=== PATIENT | female | born 1940 | race African-American/Black ===

== ENCOUNTER 2022-02-19 16:05 | Inpatient (IN) | payer BC, MEDICAID ==
[~2022-02-19] VITALS: Ht 152.4 cm; Wt 95.3 kg
[~2022-02-19 16:05] MED LIST: ASPI-1497 PO; GABA-532 PO; HYDR25TA PO; METF-414 PO; RANI150C12 PO; SIMV80TA90 PO; SUCR1TAB30 PO; VALS160T2 PO
[2022-02-19 23:33] LABS: CHLORIDE 112 mEq/L (98-107); PROTHROMBIN TIME 10.4 sec (9.6-11.0)
[2022-02-19 23:38] LABS: BASOPHILS % 0.3 % (0.0-2.0); EOSINOPHILS % 1.7 % (0.0-5.0); HEMATOCRIT. 21.9 % (36.0-48.0); HEMOGLOBIN. 7.2 g/dL (12.0-16.0); LYMPHOCYTES % 36.1 % (20.0-50.0); MEAN CORPUSCULAR HEMOGLOBIN 30.9 pg (28.0-32.0); MEAN CORPUSCULAR VOLUME 93.3 fL (81.0-99.0); MEAN PLATELET VOLUME 8.8 fl (7.4-10.4); MONOCYTES % 7.3 % (2.0-8.0); NEUTROPHILS % 54.6 % (40.0-76.0); PLATELET 304 x1000/uL (130-400); RED BLOOD CELL COUNT 2.34 mill/uL (4.2-5.4); RED CELL DISTRIBUTION WIDTH 15.1 % (11.6-14.6)
[2022-02-19 23:57] LABS: CLARITY URINE CLEAR (CLEAR); COLOR URINE YELLOW (YELLOW); KETONES URINE TRACE (NEGATIVE); LEUKOCYTE ESTERASE URINE 1+ (NEGATIVE); NITRITE URINE NEGATIVE (NEGATIVE); OCCULT BLOOD URINE NEGATIVE (NEGATIVE); PROTEIN URINE NEGATIVE (NEGATIVE); SPECIFIC GRAVITY URINE 1.025 (1.005-1.030); UROBILINOGEN URINE 0.2 E.U./dL (0.2-1.0)
[2022-02-20] MEDS ORDERED: LEVOFLOXACIN 750MG PREMIX 150 ML IV NR (00:15)
[2022-02-20] MEDS ORDERED: PANTOPRAZOLE SODIUM 40 MG/VIAL IV ONE (01:30)
[2022-02-20 05:30] VITALS: BP 129/61
[2022-02-20 06:12] VITALS: BP 129/61
[2022-02-20 08:00] VITALS: BP 121/51
[2022-02-20] MEDS ORDERED: IRON SUCROSE COMPLEX 100 MG/5 ML ML IV SCH (09:00)
[2022-02-20] MEDS ORDERED: DOCUSATE SODIUM 100MG CAPSULE PO SCH (09:00)
[2022-02-20 12:00] VITALS: BP 109/58
[2022-02-20] MEDS ORDERED: LEVO500T90 MT (12:45)
[2022-02-20] MEDS ORDERED: DOCU250C14 MT (12:45)
[2022-02-20] MEDS ORDERED: HYDR30CR80 TP (12:45)
[2022-02-20] MEDS ORDERED: FERR325T6 MT (12:45)
[2022-02-20] MEDS ORDERED: CEFTRIAXONE 1 G PREMIX 50 ML IV SCH (12:45)
[2022-02-20] MEDS ORDERED: CEFTRIAXONE 1,000 MG in DEXTROSE 5% WATER 50 ML IV SCH (14:00)
[2022-02-20 14:21] VITALS: BP 112/55
[2022-02-20 16:00] VITALS: BP 121/55
[2022-02-20] MEDS ORDERED: EPOETIN ALFA 4000UNITS/ML VIAL SUBCUT SCH (21:00)
== END 2022-02-20 17:57 | disposition home or self-care (01) | DRG 394 ==
LOC: ER 16:05 → 7EST 02-20 04:04 → ENRESERV 02-20 04:26
PROVIDERS: ADMIT Internal Medicine Pulmonary Disease; ATTEND Internal Medicine Pulmonary Disease
DX: K64.9 Unspecified hemorrhoids (principal); K92.2 Gastrointestinal hemorrhage, unspecified; Z68.41 Body mass index [BMI] 40.0-44.9, adult; N39.0 Urinary tract infection, site not specified; D64.9 Anemia, unspecified; E11.9 Type 2 diabetes mellitus without complications; E78.00 Pure hypercholesterolemia, unspecified; I10 Essential (primary) hypertension; E78.5 Hyperlipidemia, unspecified; E87.8 Other disorders of electrolyte and fluid balance, not elsewhere classified; E66.9 Obesity, unspecified; Z88.0 Allergy status to penicillin; Z79.899 Other long term (current) drug therapy
CPT/HCPCS: 36415; 80053; 81003; 83880; 84484; 85025; 86850; 86900; 99285; C9113; J0696; J0885; J1956; J7060

== ENCOUNTER 2022-02-25 16:28 | Inpatient (IN) | payer BC, MEDICAID ==
[~2022-02-25] VITALS: Ht 160 cm; Wt 93.4 kg
[2022-02-25] MEDS: SUCRALFATE 1G TABLET PO SCH ×3 (09:00→17:00)
[~2022-02-25 16:28] MED LIST changes: +DOCU250C14 MT; +FERR325T6 MT; +HYDR30CR80 TP; +LEVO500T90 MT
[2022-02-25 17:48] LABS: BASOPHILS % 0.3 % (0.0-2.0); EOSINOPHILS % 1.7 % (0.0-5.0); HEMATOCRIT. 21.1 % (36.0-48.0); LYMPHOCYTES % 23.6 % (20.0-50.0); MEAN CORPUSCULAR HEMOGLOBIN 31.7 pg (28.0-32.0); MEAN CORPUSCULAR VOLUME 95.1 fL (81.0-99.0); MEAN PLATELET VOLUME 7.5 fl (7.4-10.4); MONOCYTES % 7.7 % (2.0-8.0); NEUTROPHILS % 66.7 % (40.0-76.0); PLATELET 392 x1000/uL (130-400); RED BLOOD CELL COUNT 2.22 mill/uL (4.2-5.4); RED CELL DISTRIBUTION WIDTH 16.1 % (11.6-14.6)
[2022-02-25 17:59] LABS: CHLORIDE 105 mEq/L (98-107)
[2022-02-25] MEDS ORDERED: CLONIDINE 0.1MG TABLET PO PRN (23:30)
[2022-02-25] MEDS ORDERED: DOCUSATE SODIUM 100MG CAPSULE PO PRN (23:30)
[2022-02-25] MEDS ORDERED: ONDANSETRON HCL 4MG/2ML INJ IV PRN (23:30)
[2022-02-25] MEDS ORDERED: ZOLPIDEM TARTRATE 5MG TABLET PO PRN (23:30)
[2022-02-26 00:11] VITALS: BP 123/61
[2022-02-26] MEDS ORDERED: EPOETIN ALFA-EPBX 4,000 UNIT/ML VIAL SUBCUT NR (01:00)
[2022-02-26] MEDS ORDERED: DEXTROSE 50% WATER 50ML SYRINGE IV PRN (03:15)
[2022-02-26 04:00] VITALS: BP 162/71
[2022-02-26] MEDS ORDERED: PNEUMOCOCCAL 23-VAL P-SAC VAC 0.5 ML IM ONE (05:00)
[2022-02-26] MEDS: INSULIN LISPRO 100 UNITS/ML SUBCUT SCH ×4 (07:50→21:00)
[2022-02-26] MEDS ORDERED: PANTOPRAZOLE 40MG DR TABLET PO SCH (07:50)
[2022-02-26 08:00] VITALS: BP 113/63
[2022-02-26 08:09] LABS: CHLORIDE 109 mEq/L (98-107)
[2022-02-26] MEDS: BLOOD SUGAR DIAGNOSTIC STRIP TEST SCH ×4 (08:18→21:20)
[2022-02-26] MEDS: DOCUSATE SODIUM 250MG CAPSULE PO SCH ×2 (08:58→16:59)
[2022-02-26] MEDS: LOSARTAN POTASSIUM 100 MG TABLET PO SCH (08:59)
[2022-02-26] MEDS: GABAPENTIN 300MG CAPSULE PO SCH (08:59)
[2022-02-26] MEDS: SUCRALFATE 1G TABLET PO SCH ×3 (09:00→17:00)
[2022-02-26] MEDS ORDERED: FERROUS SULFATE 325MG TABLET PO SCH (09:00)
[2022-02-26 12:00] VITALS: BP 111/53
[2022-02-26 12:10] LABS: BASOPHILS % 0.3 % (0.0-2.0); EOSINOPHILS % 2.2 % (0.0-5.0); LYMPHOCYTES % 22.2 % (20.0-50.0); MEAN CORPUSCULAR HEMOGLOBIN 31.5 pg (28.0-32.0); MEAN CORPUSCULAR VOLUME 96.4 fL (81.0-99.0); MEAN PLATELET VOLUME 7.9 fl (7.4-10.4); MONOCYTES % 6.9 % (2.0-8.0); NEUTROPHILS % 68.4 % (40.0-76.0); PLATELET 351 x1000/uL (130-400); RED BLOOD CELL COUNT 2.09 mill/uL (4.2-5.4); RED CELL DISTRIBUTION WIDTH 16.3 % (11.6-14.6)
[2022-02-26 12:27] LABS: CHLORIDE 110 mEq/L (98-107)
[2022-02-26 12:30] LABS: HEMOGLOBIN. 6.6 g/dL (12.0-16.0)
[2022-02-26 12:31] LABS: HEMATOCRIT. 20.2 % (36.0-48.0)
[2022-02-26 16:00] VITALS: BP 108/57
[2022-02-26] MEDS ORDERED: IRON SUCROSE COMPLEX 100 MG/5 ML ML IV SCH (16:00)
[2022-02-26] MEDS: PANTOPRAZOLE SODIUM 40 MG/VIAL IV SCH (18:23)
[2022-02-26 19:15] LABS: TOTAL IRON BINDING CAPACITY 336 ug/dL (250-450)
[2022-02-26 19:48] LABS: FOLIC ACID (FOLATE) SERUM 16.2 ng/mL (>5.38)
[2022-02-26 20:00] VITALS: BP 123/62
[2022-02-26] MEDS ORDERED: EPOETIN ALFA-EPBX 4,000 UNIT/ML VIAL SUBCUT SCH (21:00)
[2022-02-26] MEDS: ATORVASTATIN CALCIUM 20MG TABLET PO SCH (21:18)
[2022-02-27] VITALS: BP 123/64
[2022-02-27 01:24] LABS: HEMOGLOBIN 7.1 g/dL (12.0-16.0)
[2022-02-27 04:00] VITALS: BP 140/64
[2022-02-27] MEDS: ACETAMINOPHEN 325MG TABLET PO PRN ×3 (04:17→18:46)
[2022-02-27] MEDS: BLOOD SUGAR DIAGNOSTIC STRIP TEST SCH ×4 (05:55→21:16)
[2022-02-27] MEDS: INSULIN LISPRO 100 UNITS/ML SUBCUT SCH ×4 (07:41→21:00)
[2022-02-27 07:46] LABS: BASOPHILS % 0.5 % (0.0-2.0); EOSINOPHILS % 2.9 % (0.0-5.0); LYMPHOCYTES % 24.1 % (20.0-50.0); MEAN CORPUSCULAR HEMOGLOBIN 31.9 pg (28.0-32.0); MEAN CORPUSCULAR VOLUME 95.3 fL (81.0-99.0); MEAN PLATELET VOLUME 7.6 fl (7.4-10.4); MONOCYTES % 8.9 % (2.0-8.0); NEUTROPHILS % 63.6 % (40.0-76.0); PLATELET 366 x1000/uL (130-400); RED CELL DISTRIBUTION WIDTH 17.3 % (11.6-14.6)
[2022-02-27 08:00] VITALS: BP 121/53
[2022-02-27 08:12] LABS: CHLORIDE 109 mEq/L (98-107)
[2022-02-27 08:23] LABS: HEMATOCRIT. 20.9 % (36.0-48.0)
[2022-02-27] MEDS: DOCUSATE SODIUM 250MG CAPSULE PO SCH ×2 (08:54→18:46)
[2022-02-27] MEDS: LOSARTAN POTASSIUM 100 MG TABLET PO SCH (08:55)
[2022-02-27] MEDS: SUCRALFATE 1G TABLET PO SCH ×3 (08:55→18:46)
[2022-02-27] MEDS: GABAPENTIN 300MG CAPSULE PO SCH (08:56)
[2022-02-27] MEDS: PANTOPRAZOLE SODIUM 40 MG/VIAL IV SCH (09:03)
[2022-02-27 12:00] VITALS: BP 99/41
[2022-02-27] MEDS ORDERED: TRAMADOL 50MG TABLET PO PRN (13:00)
[2022-02-27] MEDS ORDERED: LACTULOSE 20G/30ML UDC PO NR (13:00)
[2022-02-27] MEDS ORDERED: NALOXONE HCL 0.4MG/ML VIAL IV PRN (13:00)
[2022-02-27 13:14] LABS: BASOPHILS % 0.4 % (0.0-2.0); EOSINOPHILS % 2.5 % (0.0-5.0); HEMATOCRIT. 21.3 % (36.0-48.0); HEMOGLOBIN. 7.1 g/dL (12.0-16.0); LYMPHOCYTES % 21.3 % (20.0-50.0); MEAN CORPUSCULAR HEMOGLOBIN 32.2 pg (28.0-32.0); MEAN PLATELET VOLUME 7.6 fl (7.4-10.4); MONOCYTES % 7.7 % (2.0-8.0); NEUTROPHILS % 68.1 % (40.0-76.0); PLATELET 373 x1000/uL (130-400); RED BLOOD CELL COUNT 2.22 mill/uL (4.2-5.4); RED CELL DISTRIBUTION WIDTH 17.2 % (11.6-14.6)
[2022-02-27 13:24] LABS: CHLORIDE 108 mEq/L (98-107)
[2022-02-27 16:00] VITALS: BP 106/54
[2022-02-27 20:00] VITALS: BP 115/52
[2022-02-27] MEDS: ATORVASTATIN CALCIUM 20MG TABLET PO SCH (20:58)
[2022-02-27] MEDS ORDERED: EPOETIN ALFA-EPBX 4,000 UNIT/ML VIAL SUBCUT NR (21:00)
[2022-02-28] VITALS: BP 108/56
== END 2022-02-28 01:40 | disposition short-term general hospital (02) | DRG 393 ==
LOC: ER 16:28 → 6WST 20:47 → EDBEDREQ 20:52 → EDBEDREQTM 20:52 → ENRESERV 23:17
PROVIDERS: ADMIT Internal Medicine; ATTEND Internal Medicine
DX: K64.9 Unspecified hemorrhoids (principal); J96.00 Acute respiratory failure, unspecified whether with hypoxia or hypercapnia; G90.8 Other disorders of autonomic nervous system; E66.01 Morbid (severe) obesity due to excess calories; D64.9 Anemia, unspecified; Z20.822 Contact with and (suspected) exposure to COVID-19; I11.9 Hypertensive heart disease without heart failure; E11.9 Type 2 diabetes mellitus without complications; E78.5 Hyperlipidemia, unspecified; K59.00 Constipation, unspecified; Z88.0 Allergy status to penicillin; Z79.899 Other long term (current) drug therapy; Z68.36 Body mass index [BMI] 36.0-36.9, adult
CPT/HCPCS: 36415; 71045; 80053; 82607; 82728; 82746; 82962; 83540; 83550; 84484; 85014; 85018; 85025; 85044; 86850; 86900; 87426; 90732; 93005; 97116; 97162; 99285; C9113; J0885